=== PATIENT | female | born 1975 | race Caucasian/White ===

== ENCOUNTER 2017-02-05 12:45 | Emergency (ER) | payer BC ==
--- NOTE | 2017-02-05 12:53 | PDOC ---
History of Present Illness - General Chief Complaint: ,Possible Stated Complaint: ABD CRAMPING, Time Seen by Provider: 02/05/17 12:51 - History of Present Illness Initial Comments: 02/05/17 13:02 Chief complaint: Cramping History of present illness: Patient being followed by her [employer] physician for recent . She has had intermittent cramping for the last few days, with no bleeding or discharge. She had a quantitative hCG on Wednesday at 1500, and an ultrasound which showed an empty sac. Review of systems: No bleeding or discharge is noted above. Mild intermittent cramping. Mild nausea and breast tenderness. No chest pain, shortness of breath , vomiting, diarrhea, constipation, urinary tract symptoms. Past medical history: 6, para 3, with 2 prior spontaneous abortions, most recent of which was 2 years ago. She is trying to become at present. She was being evaluated for fertility treatment but became naturally without any intervention during the evaluation and before any treatment. She has no other known illnesses of a significant nature past or present, takes no medications Social history: No tobacco alcohol or nonprescription drugs. Fully active without disability. with stable: Family Family history: Reviewed and noncontributory including coagulopathies, blood dyscrasias, unusual bleeding, early coronary artery disease, metabolic diseases including diabetes, or cancer Physical exam: Alert and oriented well-developed well-nourished no acute distress cheerful and cooperative Afebrile, vital signs normal HEENT clear Neck supple without bruit mass or nodes Chest clear CV regular without murmur or gallop Abdomen benign. No masses tenderness organomegaly. Neurological intact. Reflexes 2+ symmetric, no clonus Extremities no CCE Skin clear, no rash, adequate turgor but mucous membranes Impression: Early , abnormal ultrasound, mild cramping Plan: Repeat beta hCG and ultrasound. Continued follow-up with [employer]. Past History - Past Medical History Allergies/Adverse Reactions: Allergies Allergy/AdvReac Type Severity Reaction Status Date / Time Iodinated Contrast Media - Allergy Verified 02/05/17 12:53 Oral and [Iodinated Contrast Media - IV Dye] GI Disorders: Yes (GERD,GALBLADDER SLUDGE) - Surgical History Abdominal Surgery: Yes ( X 2) GI Surgery: Yes (ENDOSCOPY,COLONSCOPY 04/22/16) - Psycho/Social/Smoking Cessation Hx Anxiety: No Suicidal Ideation: No Smoking History: Never smoked Have you smoked in the past 12 months: No Hx Alcohol Use: No Drug/Substance Use Hx: No Substance Use Type: Alcohol ED Treatment Course - LABORATORY CBC & Chemistry Diagram: 02/05/17 13:12 02/05/17 13:03 Medical Decision Making - Medical Decision Making 02/05/17 14:48 CBC and chemistries without significant abnormalities Beta hCG 1749, not significantly elevated since prior. Ultrasound fails to show pole, fluid in the cul-de-sac and very small sac identified. No pain at present, no cramping, no vaginal bleeding or discharge. To follow-up with her [employer] physician within the next few days. *DC/Admit/Observation/Transfer Diagnosis at time of Disposition: Qualifiers: Weeks of gestation: less than 8 weeks Qualified Code(s): Z3A.01 - Less than 8 weeks gestation of - Discharge Dispostion Disposition: HOME Condition at time of disposition: Stable Admit: No - Patient Instructions Additional Instructions: See your [employer]ERTY [employer] physician and discuss present results as furnished with the discharge papers. Return to ER if there is significant bleeding or pain.
[2017-02-05 13:20] VITALS: BP 127/69; PULSE 77; TEMP 98.2; BMI 24.0
[2017-02-05 13:43] LABS: ALBUMIN 4.2 g/dl (3.5-5.0); ALK PHOS 64 U/L (32-92); ANION GAP 8 (8-16); BILIRUBIN,TOTAL 0.1 mg/dl (0.2-1.0); CO2 21 mmol/L (22-28); CREATININE 0.6 mg/dl (0.6-1.3); GLUCOSE,RANDOM 126 mg/dl (74-106); SGOT/AST 22 U/L (10-42); SGPT/ALT 19 U/L (10-40); TOT PROT 6.6 g/dl (6.4-8.3)
[2017-02-05 13:50] LABS: MCH 32.8 pg (25.7-33.7); MCHC 34.6 g/dl (32.0-36.0); MEAN CELL VOLUME 94.7 fl (80-96); MEAN PLT VOLUME 9.4 fl (7.5-11.1); PLATELET COUNT 295 K/MM3 (134-434); RDW 12.4 % (11.6-15.6); WHITE BLOOD COUNT 11.8 K/mm3 (4.0-10.8)
== END 2017-02-05 15:02 | disposition home or self-care (01) ==
LOC: FER 12:45
DX: O26.891 Other specified pregnancy related conditions, first trimester (principal); Z3A.01 Less than 8 weeks gestation of pregnancy; K21.9 Gastro-esophageal reflux disease without esophagitis
CPT/HCPCS: 36415; 76801-TC; 80053; 84702; 85027; 99281-25

== ENCOUNTER 2018-04-24 12:37 | Emergency (ER) | payer BC ==
[2018-04-24 12:41] VITALS: TEMP 98.4; BMI 24.0
--- NOTE | 2018-04-24 13:04 | PDOC ---
History of Present Illness - General Chief Complaint: Lightheaded Stated Complaint: Lightheaded Time Seen by Provider: 04/24/18 13:02 - History of Present Illness Initial Comments: 43yo F with history of hypotension and hypoglycemia presenting with lightheadedness starting about 1.5 hours prior to arrival to the ED. Patient was getting ready for a bike ride when she suddenly felt "off." She reported that the room was spinning, exacerbated by changes in position. She has had similar episodes like this a couple times a week for the past three or four months, but they would only last a couple minutes. She thought this was a hypoglycemic episode so she started eating some snacks and hydrating, but since she continued to feel symptoms of dizziness and unbalance, and of greater severity than usual, she decided to come to the ED. Denies fever, chills, chest pain, shortness of breath. Past History - Past Medical History Allergies/Adverse Reactions: Allergies Allergy/AdvReac Type Severity Reaction Status Date / Time Iodinated Contrast- Oral and Allergy Verified 04/24/18 12:41 IV Dye [Iodinated Contrast Media - IV Dye] Home Medications: Ambulatory Orders Meclizine HCl 25 mg PO PRN #15 tab.chew 04/24/18 COPD: No GI Disorders: Yes (GERD,GALBLADDER SLUDGE) - Surgical History Abdominal Surgery: Yes ( X 2) GI Surgery: Yes (ENDOSCOPY,COLONSCOPY 04/22/16) - Suicide/Smoking/Psychosocial Hx Smoking History: Never smoked Have you smoked in the past 12 months: No Hx Alcohol Use: No Drug/Substance Use Hx: No Substance Use Type: Alcohol Review of Systems - Review of Systems Comments:: Constitutional: no fever, no chills Cardiovascular: no chest pain, no palpitations Respiratory: no cough, no shortness of breath Gastrointestinal: +nausea, no abdominal pain Genitourinary: no dysuria, no frequency Musculoskeletal: no myalgia, no arthralgia Skin: no rash, no itching Neurologic: +dizziness, no headache *Physical Exam - Vital Signs Last Vital Signs Temp Pulse Resp BP Pulse Ox 98.4 F 92 H 18 143/91 99 04/24/18 12:38 04/24/18 12:38 04/24/18 12:38 04/24/18 12:38 08/05/18 12:38 - Physical Exam Comments: General: Awake, alert, and fully oriented, in no acute distress Head: no signs of trauma Eyes: PERRL, EOMI, sclera anicteric ENT: Moist mucus membranes, Neck: Normal ROM, supple Lungs: Lungs clear, Normal breath sounds Cardio: Regular rhythm, S1 and S2 present, no murmurs, rubs, or gallops Abdomen: Soft, nontender, normal bowel sounds Extremities: Normal range of motion, Distal pulses present SKIN: Warm, Dry, normal turgor, no rashes or lesions noted Neurologic: Cranial nerves II through XII grossly intact. Normal strength, sensation, and coordination. Unbalanced gait. Normal speech ED Treatment Course - LABORATORY CBC & Chemistry Diagram: 04/24/18 14:22 04/24/18 14:22 Medical Decision Making - Medical Decision Making Patient with symptoms of "room spinning" and unbalance. Likely peripheral vertigo given sudden onset of symptoms, n/v aggravated by position. Given 2L NS , 4 Zofran, 25 meclizine, 5 valium. Patient reports some alleviation of symptoms , but still feels dizzy and needed assistance to walk to the bathroom. Decision made to order Head CT imaging which was normal. Will refer to neuro and patient will follow up with her PCP. Meclizine prescription sent to pharmacy. Will discharge. Patient amenable to plan. *DC/Admit/Observation/Transfer Diagnosis at time of Disposition: Dizziness - Discharge Dispostion Disposition: HOME Condition at time of disposition: Improved - Prescriptions Prescriptions: Meclizine HCl 25 mg PO PRN #15 tab.chew - Referrals Referrals: Selvin Stanley MD [Primary Care Provider] - Leesa Reyna MD [Staff Physician] - - Patient Instructions Printed Discharge Instructions: Vertigo Additional Instructions: You were seen in the emergency department for dizziness. We performed blood work which was normal. Head CT imaging was also normal. Follow up with your PCP, Dr. Stanley, this week. We are referring you to a neurologist who can further workup your dizziness. You can call and make an appointment: Leesa Reyna MD Neurology (Primary Specialty) [facility], [address] [place] [address] A prescription was sent to your pharmacy: Meclizine 25mg, Take one tablet as needed for dizziness Call for medical help or go to the emergency right away if you have: A head injury Symptoms of a stroke: Weakness or numbness of face, arm, or leg Confusion Trouble speaking or understanding Loss of balance, coordination problems Vision problems Severe Headache Rapid, irregular heartbeat; chest pain - Post Discharge Activity
--- NOTE | 2018-04-24 13:06 | PDOC ---
Attending Attestation - Resident Resident Name: Dayanna Thomas - ED Attending Attestation I have performed the following: I have examined & evaluated the patient, The case was reviewed & discussed with the resident, I agree w/resident's findings & plan, Exceptions are as noted - HPI HPI: 43 yo F no significant PMH presents with vertiginous symptoms since this morning. She states that she got up, felt dizzy, but ate breakfast, thinking it might be hypoglycemia (which has happened in the past), however, she did not improve. She states she was planning to go for a bike ride, but instead went to her office to lay down. She has not been sick recently, no recent ear pain. No vomiting, but she did feel nauseous when it happened. Denies headache, weakness , numbness. Symptoms are worse with changes in head position. - Physicial Exam PE: GENERAL: Awake, alert, and fully oriented, in no acute distress HEAD: No signs of trauma EYES: PERRLA, EOMI, sclera anicteric, conjunctiva clear ENT: Auricles normal inspection, hearing grossly normal, nares patent, oropharynx clear without exudates. Dry mucosa. TMs normal B/L. NECK: Normal ROM, supple, no lymphadenopathy, JVD, or masses LUNGS: Breath sounds equal, clear to auscultation bilaterally. No wheezes, and no crackles HEART: Regular rate and rhythm, normal S1 and S2, no murmurs, rubs or gallops ABDOMEN: Soft, nontender, normoactive bowel sounds. No guarding, no rebound. No masses EXTREMITIES: Normal range of motion, no edema. No clubbing or cyanosis. No cords, erythema, or tenderness NEUROLOGICAL: Cranial nerves II through XII grossly intact. Normal speech. Motor and sensation intact. SKIN: Warm, Dry, normal turgor, no rashes or lesions noted. - Medical Decision Making Pt presents with symptoms consistent with peripheral vertigo, noted to have dehydration on exam. No focal neuro deficits. Will check UA/UCG, labs, and give IV fluids and meds. If improved, will DC home.
[2018-04-24] MEDS ORDERED: ONDANSETRON 4 MG/2 ML VIAL IVPUSH ONE (13:51)
[2018-04-24] MEDS ORDERED: SODIUM CHLORIDE 1,000 ML IV STA ×2 (13:51→15:21)
[2018-04-24] MEDS ORDERED: ONDANSETRON 4 MG/2 ML VIAL ONE (14:07)
[2018-04-24] MEDS ORDERED: MECLIZINE HCL 25 MG TABLET (FP) PO ONE (14:07)
[2018-04-24] MEDS ORDERED: MECLIZINE HCL 12.5 MG TABLET ONE (14:17)
[2018-04-24 14:19] LABS: URINE APPEARANCE CLEAR; URINE BILIRUBIN NEGATIVE (<2.0 mg/dL); URINE COLOR COLORLESS; URINE GLUCOSE (UA) NEGATIVE (NEGATIVE); URINE KETONE NEGATIVE (NEGATIVE); URINE LEUK ESTERASE NEGATIVE (NEGATIVE); URINE NITRITE NEGATIVE (NEGATIVE); URINE PROTEIN NEGATIVE (NEGATIVE); URINE UROBILINOGEN NEGATIVE mg/dL (0.2-1.0)
[2018-04-24 14:23] LABS: HCG,QUALITATIVE URINE NEGATIVE
[2018-04-24 14:28] LABS: BASO % 0.8 % (0-2.0); EOS % 0.3 % (0-4.5); HEMATOCRIT 36.4 % (32.4-45.2); HEMOGLOBIN 12.7 GM/dL (10.7-15.3); LYMPH % 24.5 % (8-40); MCH 33.4 pg (25.7-33.7); MEAN CELL VOLUME 95.5 fl (80-96); MEAN PLT VOLUME 8.7 fl (7.5-11.1); MONO % 8.4 % (3.8-10.2); PLATELET COUNT 295 K/MM3 (134-434); RBC 3.81 M/mm3 (3.60-5.2); RDW 12.5 % (11.6-15.6); WHITE BLOOD COUNT 7.1 K/mm3 (4.0-10.0)
[2018-04-24 14:59] LABS: ALBUMIN 4.2 g/dl (3.4-5.0); ALK PHOS 80 U/L (45-117); ANION GAP 8 (8-16); BILIRUBIN,TOTAL 0.3 mg/dL (0.2-1.0); BLOOD UREA NITROGEN 8 mg/dL (7-18); CALCIUM 9.4 mg/dL (8.5-10.1); CHLORIDE 106 mmol/L (98-107); CO2 27 mmol/L (21-32); CREATININE 0.8 mg/dL (0.55-1.02); GLUCOSE,RANDOM 94 mg/dL (74-106); POTASSIUM 4.1 mmol/L (3.5-5.1); SGOT/AST 21 U/L (15-37); SGPT/ALT 25 U/L (12-78); SODIUM 141 mmol/L (136-145); TOT PROT 7.4 g/dl (6.4-8.2)
[2018-04-24] MEDS ORDERED: diazePAM 5 MG TABLET PO ONE (15:21)
[2018-04-24] MEDS ORDERED: diazePAM 5 MG TABLET ONE (15:24)
[2018-04-24 20:10] VITALS: BP 138/82; PULSE 88
--- NOTE | 2018-04-25 11:49 | EKG ---
Test Reason : Blood Pressure : / mmHG Vent. Rate : 060 BPM Atrial Rate : 060 BPM P-R Int : 132 ms QRS Dur : 080 ms QT Int : 382 ms P-R-T Axes : 072 045 045 degrees QTc Int : 382 ms NORMAL SINUS RHYTHM POSSIBLE LEFT ATRIAL ENLARGEMENT BORDERLINE ECG NO PREVIOUS ECGS AVAILABLE Confirmed by PILAR NUNO, HUNG ([id number]) on 04/25/2018 11:49:08 AM Referred By: Confirmed By:HUNG QUEZADA MD
== END 2018-04-24 20:05 | disposition home or self-care (01) ==
LOC: JER 12:37
PROC: 3E033GC Introduction of Other Therapeutic Substance into Peripheral Vein, Percutaneous Approach (ICD-10-PCS; principal; 2018-04-24)
PROC: 3E0337Z Introduction of Electrolytic and Water Balance Substance into Peripheral Vein, Percutaneous Approach (ICD-10-PCS; 2018-04-24)
DX: R42 Dizziness and giddiness (principal)
CPT/HCPCS: 36415; 70450-TC; 80053; 81003; 82962; 84703; 85025; 93005; 93010; 99283-25; J7030